=== PATIENT | female | born 1965 | race Caucasian/White ===

== ENCOUNTER → 2017-06-25 | Day surgery (SDC) | payer OTHER ==
[~2017-06-25] MED LIST: LACTATED RINGER'S 1000 ML INJ 1,000 ML ONE; LEVO.025 PO; MIDAZOLAM HCL 2 MG/2 ML VIAL ONE; ONDANSETRON HCL 4 MG/2 ML VIAL IV PUSH ONE; PROPOFOL 200 MG/20 ML AMP IV ONE; SODIUM CHLORIDE 0.9% 250 ML ADDBAG IV ONE; SODIUM CHLORIDE 0.9% INJ 10 ML ONE; VANCOMYCIN HCL 1000 MG VIAL ONE
--- NOTE | 2017-06-25 10:02 | TN ---
cc: Kenny Farah MD DATE OF SURGERY: 06/25/2017 PREOPERATIVE DIAGNOSIS: Metastatic left breast cancer. POSTOPERATIVE DIAGNOSIS: Metastatic left breast cancer. PROCEDURE PERFORMED: Right subclavian [id number]-n-evow with intraoperative fluoroscopy. SURGEON: Kenny Farah MD ANESTHESIA: TIVA with local. COMPLICATIONS: None. INDICATIONS FOR THE PROCEDURE: Anita is a very pleasant 51-year-old female who unfortunately has a metastatic left breast cancer. She requires IV chemotherapy. Risks and benefits of Oyaexw-q-[id number] placement was discussed with her and she was agreeable. DETAILS OF THE PROCEDURE: The patient was identified, brought to the operating room, placed supine on the operating table. After adequate IV sedation was achieved, the right anterior chest and neck was prepped and draped in standard surgical fashion. 0.25% Marcaine injected into the skin and subcutaneous tissue around the right clavicle. The right subclavian vein was then accessed without difficulty. Guidewire was advanced and followed with fluoroscopy down to the level of the superior vena cava. Next, a subcutaneous pocket was fashioned in the right anterior chest using sharp dissection. The introducer was then placed over the guidewire and followed to the level superior vena cava. The guidewire was then removed and the catheter was advanced through the introducer to the superior vena cava at about 16 cm. The introducer was then removed. Position was confirmed with fluoroscopy. The catheter was then tunneled down to the pocket, which was in the lower medial chest away from the bra strap line and clavicle. Catheter was attached to the port with a locking device. The port was then tested and found to have excellent blood return, easy ability to flush. The port was then placed into the subcutaneous pocket and secured with a 2-0 Prolene suture. The wound was then injected with additional local anesthetic. The wound was then closed in 2 layers using a 4-0 Vicryl. Steri-Strips were used to close the puncture site up by the clavicle. Sterile dressings were applied and the patient was awakened and brought to the recovery room in stable condition. Chest x-ray will be obtained in recovery. Kenny Farah MD MWW/DL , 09:44 AM , 10:01 AM
== END | disposition home or self-care (01) ==
LOC: ESDC 07:37
PROVIDERS: ATTEND Surgery Trauma Surgery
DX: C50.912 Malignant neoplasm of unspecified site of left female breast (principal)
CPT/HCPCS: 00532; 36561; 77001; C1788; J1642; J2250; J2405; J3010; J3370; J7120